=== PATIENT | male | born 1965 | race Caucasian/White ===

== ENCOUNTER 2017-10-11 04:32 | Emergency (ER) | payer MEDICAID ==
[2013-12-13 13:36] VITALS: BMI 27.1
[~2017-10-11 04:32] MED LIST: BENADRYL25 M1 PO; DUONEB 2.5-0.5 M3 ML UPD; NORCO 5/325 TAB1 TA1 PO
[2017-10-11 04:58] LABS: APPEARANCE CLEAR (CLEAR); BILIRUBIN NEGATIVE (NEGATIVE); COLOR YELLOW (YELLOW); GLUCOSE NEGATIVE (NEGATIVE); KETONE NEGATIVE (NEGATIVE); NITRITE NEGATIVE (NEGATIVE); PROTEIN TRACE mg/dL (NEGATIVE); RED CELLS - URINE 25-50 /hpf (0-5); UROBILINOGEN NORMAL (NORMAL); WHITE CELLS - URINE 0-5 /hpf (0-5)
[2017-10-31 13:54] VITALS: BMI 32.3
== END 2017-10-11 05:53 | disposition home or self-care (01) ==
LOC: D.ER 04:32
PROVIDERS: Emergency Medicine
DX: N23 Unspecified renal colic (principal); N20.1 Calculus of ureter; I10 Essential (primary) hypertension

== ENCOUNTER 2017-10-28 21:56 | Emergency (ER) | payer MEDICAID ==
[2013-12-13 13:36] VITALS: BMI 27.1
[2017-10-28 22:24] LABS: BASOPHILS 0.2 % (0-2); EOSINOPHILS 1.4 % (0-7); HEMATOCRIT 39.4 % (42.0-54.0); HEMOGLOBIN 13.5 g/dL (13.5-17.5); IMMATURE GRANULOCYTES 0.3 % (0-5); LYMPHOCYTES 27.6 % (15-50); MCH 31.4 pg (26.0-34.0); MCHC 34.3 g/dL (31.0-37.0); MCV 91.6 fL (80.0-100.0); MEAN PLATELET VOLUME 9.9 fL (7.4-10.4); MONOCYTES 9.8 % (2-11); NEUTROPHILS 60.7 % (40-80); WBC 16.9 10x3/uL (4.8-10.8)
[2017-10-28 22:33] LABS: PLATELET COUNT 269 10x3/uL (130-400)
[2017-10-28 22:42] LABS: ALBUMIN 3.7 g/dL (3.4-5.0); ANION GAP 16.3 mmol/L (8-16); BILIRUBIN - TOTAL 0.49 mg/dL (0.2-1.3); CALCIUM 8.9 mg/dL (8.5-10.1); CARBON DIOXIDE 22.9 mmol/L (21.0-32.0); CREATININE - SERUM 1.8 mg/dL (0.6-1.3); POTASSIUM - SERUM 4.2 mmol/L (3.5-5.1); PROTEIN - SERUM 7.7 g/dL (6.4-8.2)
[2017-10-28 23:16] LABS: AMYLASE - SERUM 54 U/L (25-115); LIPASE 184 U/L (73-393)
[2017-10-29 00:07] LABS: APPEARANCE CLEAR (CLEAR); BILIRUBIN NEGATIVE (NEGATIVE); COLOR YELLOW (YELLOW); GLUCOSE NEGATIVE (NEGATIVE); KETONE NEGATIVE (NEGATIVE); NITRITE NEGATIVE (NEGATIVE); PROTEIN NEGATIVE (NEGATIVE); UROBILINOGEN NORMAL (NORMAL)
[2017-10-29 00:09] LABS: BACTERIA FEW /hpf (NONE SEEN); CALCIUM OXALATE CRYSTALS 0-5 /hpf (NONE SEEN); EPITHELIAL CELLS 0-5 /hpf (0-5); MUCUS <1+ /lpf (NONE SEEN); RED CELLS - URINE 0-5 /hpf (0-5); WHITE CELLS - URINE 0-5 /hpf (0-5)
[2017-10-31 13:54] VITALS: BMI 32.3
== END 2017-10-29 00:49 | disposition home or self-care (01) ==
LOC: D.ER 21:56
PROVIDERS: Family Medicine; Nurse Practitioner Family
DX: N20.1 Calculus of ureter (principal); R11.10 Vomiting, unspecified; I10 Essential (primary) hypertension

== ENCOUNTER 2017-10-31 09:46 | Day surgery (SDC) | payer MEDICAID ==
[~2017-10-31] VITALS: Ht 182.9 cm; Wt 108.0 kg
--- NOTE | ~2017-10-31 | OP ---
PATIENT NAME: LINN KOHLER MEDICAL RECORD: [id number] :63 LOCATION:D[facility] ADMISSION DATE: SURGEON: MINESH FAJARDO MD DATE OF OPERATION: 10/31/2017 SURGEON: Minesh Fajardo MD ANESTHESIA: General anesthesia by Roxane Berger CRNA PREOPERATIVE DIAGNOSIS: Left ureteral stone, 3 mm, at the ureterovesical junction. POSTOPERATIVE DIAGNOSIS: Left ureteral stone, 3 mm, at the ureterovesical junction. PROCEDURES: Cystoscopy, left ureteroscopy, stone extraction, left ureteral stent insertion, 6-Jordanian x 26 cm with string attached. FINDINGS: Radiodense left distal ureteral stone, 3 mm lodged at the ureteral orifice. SPECIMENS: Left ureteral stone. ESTIMATED BLOOD LOSS: None. CLINICAL HISTORY: This is a 52-year-old male with no previous history of kidney stones. He developed left flank pain with radiation to the left lower quadrant and nausea and vomiting on 10/04/2017. Since then, he has had occasional episodes of severe abdominal pain. Two days ago, he had severe abdominal pain again and he went to the Emergency Room. In the Emergency Room, CT showed a 3 mm stone at the left UV junction and a nonobstructing right renal stone. I sent him for a KUB today and he continued to have the stone present in the left distal ureter. He comes now to have the stone removed by ureteroscopy. He is not allergic to any medications. He was given ampicillin and sulbactam 3 grams IV [employer] to the OR. DESCRIPTION OF PROCEDURE: The patient was given induction of general anesthesia. He was then placed into dorsal lithotomy position and prepped and draped. A 21-Jordanian cystoscope with 30-degree lens was used for visualization. Penile urethra was normal with no strictures or tumors. Prostatic urethra was nonobstructive. Going into the bladder, he has single ureteral orifices on each side. The black colored stone could be seen partly emanating from the left ureteral orifice. I tried to remove it using grasping forceps, but it ended up getting pushed back more proximally. At this point, we inserted a Sensor wire into the left ureteral orifice and pushed the wire up to the renal pelvis. We then used an 18-Jordanian by 4 cm long ureteral dilation balloon. The balloon was inflated to 16 atmospheres of pressure for a few seconds to inflate to dilate the left ureteral orifice. We then removed the balloon entirely, leaving the Sensor wire in place. The cystoscope was then removed, leaving the wire in place. We placed the rigid ureteroscope beside the wire. We identified the stone in the distal ureter. A 0-tip 4-wire basket was placed around the stone and the stone was completely removed. It was sent to pathology for stone analysis. The wire was then backloaded onto the cystoscope and over the wire, we inserted a 6-Jordanian x 26 cm ureteral stent. Once the proximal end of the stent was within the renal pelvis, the wire was gradually withdrawn to allow the OPERATIVE REPORT [id number] LINN KOHLER proximal end to coil in the renal pelvis. The distal end of the stent was pushed into the bladder using a pusher. The wire was then entirely withdrawn. The distal end was seen to coil within the bladder. The bladder was then emptied through the cystoscope. The cystoscope was then removed. The string on the distal end of the stent is maintained. It hangs out of the penile urethra. It was tied to itself in a knot and cut shorter. The patient will be going home tonight. He already has pain medications from the Emergency Room and no further scripts were given to him. He will be seen next week in followup in the clinic to have the stent removed by pulling on the string. TRANSINT:[id number] Voice Confirmation ID: [id number] DOCUMENT ID: [id number] MINESH FAJARDO MD at 1316 CC: [id number] DICTATION DATE: 10/31/17 180 CASTING CARRIER: 10/31/172042 [facility] [place] 10/31/[address] [id number]
[2017-10-31 13:22] LABS: BASOPHILS 0.3 % (0-2); HEMATOCRIT 38.8 % (42.0-54.0); HEMOGLOBIN 13.2 g/dL (13.5-17.5); IMMATURE GRANULOCYTES 0.3 % (0-5); LYMPHOCYTES 49.9 % (15-50); MCH 31.6 pg (26.0-34.0); MCV 92.8 fL (80.0-100.0); MONOCYTES 9.1 % (2-11); NEUTROPHILS 37.4 % (40-80); PLATELET COUNT 291 10x3/uL (130-400); RBC 4.18 10x6/uL (4.20-6.10); RDW 14.6 % (11.5-14.5); WBC 11.9 10x3/uL (4.8-10.8)
[2017-10-31 13:42] LABS: ANION GAP 14.2 mmol/L (8-16); CALCIUM 8.7 mg/dL (8.5-10.1); CARBON DIOXIDE 25.3 mmol/L (21.0-32.0); CREATININE - SERUM 1.2 mg/dL (0.6-1.3); POTASSIUM - SERUM 4.5 mmol/L (3.5-5.1)
[2017-10-31] MEDS ORDERED: FLOMAX0.4 MG PO (13:49)
[2017-10-31 13:54] VITALS: BP 140/84; Ht 182.9 cm; Wt 108.0 kg
== END 2017-10-31 18:30 | disposition home or self-care (01) ==
LOC: D.OPS 09:46 → D.RAD 09:46 → EDSTATUS 11:23 → D.OPS 18:30
PROVIDERS: Anesthesiology; Urology
DX: N20.1 Calculus of ureter (principal); I10 Essential (primary) hypertension; Z01.812 Encounter for preprocedural laboratory examination

== ENCOUNTER → 2017-11-19 10:36 | Outpatient (CLI) | payer MEDICAID ==
[2017-10-31 13:54] VITALS: BMI 32.3
[~2017-11-19 10:36] MED LIST changes: +FLOMAX0.4 MG PO
== END | disposition home or self-care (01) ==
LOC: D.US 10:36
DX: Z82.41 Family history of sudden cardiac death (principal)

== ENCOUNTER 2019-03-25 16:39 | Emergency (ER) | payer MEDICAID ==
[2019-03-25 16:50] VITALS: BMI 31.2
[2019-03-25] MEDS ORDERED: IBUPROFEN800 MG PO (16:52)
[2019-03-25] MEDS ORDERED: LISINOPRIL30 MG PO (16:53)
[2019-03-25] MEDS ORDERED: LIPITOR10 MG PO (16:53)
[2019-03-25] MEDS ORDERED: NEURONTIN 300300 MG PO (16:56)
[2019-03-25] MEDS ORDERED: EC-NAPROSYN500 MG PO (20:08)
[2019-03-25] MEDS ORDERED: VALIUM 2 MG TAB2 MG PO (20:08)
[2019-03-25] MEDS ORDERED: TYLENOL W/CODEI1 TAB PO (20:08)
[2019-03-25 20:42] VITALS: BP 129/66
== END 2019-03-25 20:42 | disposition home or self-care (01) ==
LOC: D.ER 16:39
DX: S39.012A Strain of muscle, fascia and tendon of lower back, initial encounter (principal); M62.830 Muscle spasm of back; M51.26 Other intervertebral disc displacement, lumbar region

== ENCOUNTER 2019-03-27 07:23 | Emergency (ER) | payer MEDICAID ==
[~2019-03-27] VITALS: Ht 182.9 cm; Wt 104.5 kg
[~2019-03-27 07:23] MED LIST changes: +EC-NAPROSYN500 MG PO; +IBUPROFEN800 MG PO; +LIPITOR10 MG PO; +LISINOPRIL30 MG PO; +NEURONTIN 300300 MG PO; +TYLENOL W/CODEI1 TAB PO; +VALIUM 2 MG TAB2 MG PO
[2019-03-27 07:28] VITALS: Ht 182.9 cm; Wt 104.5 kg
[2019-03-27 08:22] VITALS: BP 142/89
== END 2019-03-27 08:23 | disposition home or self-care (01) ==
LOC: D.ER 07:23
DX: R51 Headache (principal); K59.00 Constipation, unspecified